=== PATIENT | female | born 1985 | race Caucasian/White ===

== ENCOUNTER 2017-11-12 08:15 | Day surgery (SDC) | payer OTHER ==
--- NOTE | 2017-11-12 07:21 | PDGENHP ---
History & Physical Chief Complaint: Missed AB at 10 wks EGA History of Present Illness: 32 yo at 10wks EGA here for D&C for missed AB diagnosed by me yesterday in clinic. Was in for her New OB appointment and couldn't find FHR with doppler, confirmed IUFD by formal US. Not really having any cramping or bleeding. H/o prior term PLTCS with her son Woodrow, no other h/o miscarriage. Otherwise uncomplicated thus far in first trimester. No recent chagnes to histories or health. Pertinent Past, Social, Family History: Non-pertinent. Relevant Physical Exam: No distress, belly is soft, non-tender, non-acute. Assessment & Plan Assessment: Preop: D&C under US-guidance, missed AB at 10 wks. - Routine preop orders. - Will do under US-guidance, [facility] radiology here to do that intra-op. - Abx will be 100mg PO Doxycycline PREOP and 200mg PO postop before discharge. - No need for repeat HCG's postop, will f/u by phone in 2-3 days. - CBC and Type & Screen up to date, collected yesterday. JEREMIAS
[2017-11-12] MEDS ORDERED: DOXYCYCLINE HYCLATE 100 MG CAP/TAB PO ONE ×2 (09:21→12:07)
[2017-11-12] MEDS ORDERED: LR 1,000 ML IV SCH (09:21)
[2017-11-12] MEDS ORDERED: MIDAZOLAM 2 MG/2 ML VIAL IVP ONE (09:34)
--- NOTE | 2017-11-12 09:36 | PDANEPAE ---
ANE History of Present Illness d&c ANE Past Medical History - Cardiovascular History Hx Hypertension: No Hx Arrhythmias: No Hx Chest Pain: No Hx Coronary Artery / Peripheral Vascular Disease: No Hx CHF / Valvular Disease: No Hx Palpitations: No - Pulmonary History Hx COPD: No Hx Asthma/Reactive Airway Disease: No Hx Recent Upper Respiratory Infection: No Hx Oxygen in Use at Home: No Hx Sleep Apnea: No - Neurologic History Hx Cerebrovascular Accident: No Hx Seizures: No Hx Dementia: No - Endocrine History Hx Diabetes: No Hypothyroid: No Hyperthyroid: No Obesity: no - Renal History Hx Renal Disorders: No - Liver History Hx Hepatic Disorders: No - Neurological & Psychiatric Hx Hx Neurological and Psychiatric Disorders: No ANE Review of Systems Review of Systems: - Exercise capacity Exercise capacity: >=4 METS ANE Patient History - Allergies Allergies/Adverse Reactions: No Known Allergies Allergy (Unverified 11/12/17 07:23) - Home Medications Home medications: home medication list seen and reviewed - NPO status NPO Since - Liquids (Date): 11/12/17 NPO Since - Liquids (Time): 06:30 NPO Since - Solids (Date): 11/12/17 NPO Since - Solids (Time): 00:00 - Anes Hx Anes Hx: no prior problems ANE Physical Exam - Airway Mallampati Score: Class 2 Mouth exam: normal dental/mouth exam - Pulmonary Pulmonary: no respiratory distress - Cardiovascular Cardiovascular: regular rate and rhythym - ASA Status ASA Status: II ANE Anesthesia Plan Anesthesia Plan: GA w LMA
[2017-11-12] MEDS ORDERED: DEXAMETHASONE 4 MG/ML VIAL ONE (09:37)
[2017-11-12] MEDS ORDERED: LIDOCAINE 2% 2 ML INJ ONE ×2 (09:37)
[2017-11-12] MEDS ORDERED: KETOROLAC 30 MG/1 ML SDV ONE (09:37)
[2017-11-12] MEDS ORDERED: ONDANSETRON 4 MG/2 ML VIAL ONE (09:37)
[2017-11-12] MEDS ORDERED: fentaNYL 100 MCG/2 ML INJ ONE (09:37)
[2017-11-12] MEDS ORDERED: PROPOFOL 200 MG/20 ML VIAL ONE (09:38)
--- NOTE | 2017-11-12 09:50 | POSTOPPROG ---
Post Op Note Date of Operation: 11/14/17 Surgeon: Danie Hernández Nutritional Services Host: None Anesthesiologist: Reid Montelongo Anesthesia: LMA Pre-op Diagnosis: Missed AB, 10 wks Post-op Diagnosis: Same Procedure: Suction D&C, US-guidance Findings: ~10wk EGA fetus, no FCA, no other obvious abnormalities Inf/Abcess present in the surg proc area at time of surgery?: No EBL: 50cc Complications: None Specimen(s): Products of conception
[2017-11-12] MEDS ORDERED: LIDO/EPI 2% **for epidural** 20 ML SDV ONE (10:23)
[2017-11-12] MEDS ORDERED: LIDOCAINE/EPINEPHRINE 0.5% 50 ML MDV IF ONE (10:30)
[2017-11-12] MEDS ORDERED: ALBUTEROL 3 ML DEYVIAL IH PRN (10:38)
[2017-11-12] MEDS ORDERED: ONDANSETRON 4 MG/2 ML VIAL IVP PRN (10:38)
[2017-11-12] MEDS ORDERED: HYDROCODONE/APAP 5/325 TAB PO PRN (10:38)
[2017-11-12] MEDS ORDERED: fentaNYL 100 MCG/2 ML INJ IVP PRN (10:38)
[2017-11-12] MEDS ORDERED: LR 500 ML IV PRN (10:38)
[2017-11-12] MEDS ORDERED: NALOXONE HCL 0.4 MG/ML INJ IVP PRN (10:38)
[2017-11-12] MEDS ORDERED: MEPERIDINE 25 MG/0.5 ML AMP IVP PRN (10:38)
--- NOTE | 2017-11-12 10:51 | POSTANESTH ---
Post Anesthetic Evaluation Cardiovascular Status: Normal, Stable Respiratory Status: Normal, Stable Level of Consciousness/Mental Status: Can Participate in Eval Pain Control: Adequate, Prn Tx Ordered Nausea/Vomiting Control: Adequate, Prn Tx Ordered Complications Possibly Related to Anesthesia: None Noted
[2017-11-12 12:16] VITALS: BP 107/82
== END 2017-11-12 12:40 | disposition home or self-care (01) ==
LOC: FSGY 08:15 → FOBOP 12:40
PROVIDERS: ATTEND Obstetrics & Gynecology
PROC: 10D17ZZ Extraction of Products of Conception, Retained, Via Natural or Artificial Opening (ICD-10-PCS; principal; 2017-11-12)
PROC: BU46ZZZ Ultrasonography of Uterus (ICD-10-PCS; 2017-11-12)
DX: O02.1 Missed abortion (principal); Z88.0 Allergy status to penicillin
CPT/HCPCS: J1100; J1885; J2250; J2405; J2704; J3010; J7613

== ENCOUNTER → 2018-05-17 | Outpatient (CLI) | payer OTHER | LOC: FIMAGING 14:58 | PROVIDERS: ATTEND Obstetrics & Gynecology | DX: O02.1 Missed abortion (principal) ==

== ENCOUNTER 2018-05-18 06:14 | Day surgery (SDC) | payer OTHER ==
--- NOTE | 2018-05-17 17:21 | GHP ---
[f rep st] HISTORY AND PHYSICAL DATE OF ADMISSION: 05/18/2018 ADMITTING DIAGNOSES: 1. Missed at 8 weeks 2 days. 2. Failed medical treatment with retained products of conception. HISTORY OF PRESENT ILLNESS: The patient is a 33-year-old, G3, P1-0-1-1, with last menstrual period 03/11/2018 with an estimated due date 12/15/2018 @ 8 weeks 3 days by LMP with a missed AB. Patient was seen for new Ob visit and had an ultrasound done showing IUP @ 8 weeks 2 days and no cardiac activity was seen. Condolences were given and a long discussion with treatment options were given. The patient opted for medical management with misoprostol and took misoprostol on May 12. She had cramping and heavy bleeding with clots 4 hours later. The cramping did resolve the next day, but she had 2 more days of moderate bleeding. She presents to the office today for a f/u ultrasound. She just notes spotting and no further cramping. Patient denies any fevers, chills , nausea, or vomiting. Pelvic ultrasound revealed a uterus measuring 8 x 4 x 5 cm with a thickened heterogeneous lining measuring 1.6 cm with internal flow consistent with retained products. Discussed findings with the patient and recommend we proceed with suction D and C that was scheduled in the morning on May 18. Patient agrees with the plan at this time. PAST OB HISTORY: In June of 2014, she delivered a viable male infant at 40 weeks 5 days, weighing 8 pounds 7 ounces, via secondary to arrest of descent. Patient pushed for 3+ hours. In November 2017, she had a suction D and C secondary to a SAB with genetic testing revealing Trisomy 18. 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 Cycles are regular every 27 days for 3 days, except after D and C where it took her a few months to get regular menses again. Last menstrual period 03/11/2018. Patient has a history of abnormal Pap smears and cervical dysplasia treated with cold knife cone in 2006. 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 CURRENT MEDICATIONS: She stopped taking vitamins, currently none. ALLERGIES: Penicillin which causes a mild rash. PAST MEDICAL HISTORY: Remarkable for migraines with aura and severe cervical dysplasia. PAST SURGICAL HISTORY: Cervical cone biopsy in 2006; in June 2014; Suction D and C in November 2017. FAMILY HISTORY: Maternal aunt,and cousins, thyroid dysfunction; Maternal uncle , schizophrenia; Mom, maternal grandmother, and paternal grandmother, hypertension; Maternal aunt has a child with Down syndrome. SOCIAL HISTORY: Patient is and lives with her , Macho and their 4 year old sone. 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 Patient denies any current alcohol, tobacco, or illicit drug use. REVIEW OF SYSTEMS: A 10 point review of systems is negative. Pertinent positives noted in HPI. LABS: O positive. STUDIES: Ultrasound as above. PHYSICAL EXAMINATION: VITAL SIGNS: On admission, vital signs are stable. Patient is afebrile. GENERAL: Patient is a well-nourished, well-developed female. Alert and oriented x3. No apparent distress. SKIN: Warm, dry without rash. NEURO: Grossly intact. CARDIOVASCULAR: Regular rate and rhythm. LUNGS : Clear to auscultation bilaterally. ABDOMEN: Soft, nontender, and nondistended. PELVIC: Anteverted uterus to about 8-9 week size, nontender and no adnexal masses. EXTREMITIES: Normal to inspection without calf tenderness or edema. ASSESSMENT/PLAN: The patient is a 33-year-old 3, para 1-0-1-1 with a missed at 8 weeks 2 days, failed medical management with retained products of conception. 1. Admit to Labor and Delivery for suction D and C. 2. Consents to be obtained at the bedside, but we reviewed risks, benefits, and alternatives of the procedure including but not limited to bleeding, infection, and risk of uterine perforation. Patient understands all risks and wants to proceed with surgery. 3. Will give antibiotics on-call to the operating room, doxycycline 100 mg orally and then again in recovery prior to discharge home. 4. Patient is O positive and no RhoGAM is needed. 5. Will perform the procedure under ultrasound guidance. 6. Sequential compression devices for deep venous thrombosis prophylaxis. 7. Patient desires Anora-genetic testing at this time. /[id number]/MODL MTDD
[2018-05-18] MEDS ORDERED: DOXYCYCLINE HYCLATE 100 MG CAP/TAB PO ONE ×3 (06:29→08:45)
[2018-05-18] MEDS ORDERED: LR 1,000 ML IV ONE (06:29)
[2018-05-18] MEDS ORDERED: MIDAZOLAM 2 MG/2 ML VIAL ONE ×2 (07:33→07:59)
[2018-05-18] MEDS ORDERED: PROPOFOL 200 MG/20 ML VIAL ONE ×2 (07:34)
[2018-05-18] MEDS ORDERED: fentaNYL 100 MCG/2 ML INJ ONE (07:34)
--- NOTE | 2018-05-18 07:36 | PDHPUP ---
History & Physical Update H&P update statement: This history and physical update is based on an assessment of the patient which was completed after admission or registration (within 24 hours), but prior to the surgery/procedure. H&P update: H&P reviewed & patient examined, no change in patient's condition since H&P completed
[2018-05-18] MEDS ORDERED: DEXAMETHASONE 4 MG/ML VIAL ONE (07:37)
[2018-05-18] MEDS ORDERED: KETOROLAC 30 MG/1 ML SDV ONE (07:37)
[2018-05-18] MEDS ORDERED: LIDOCAINE 2% 2 ML INJ ONE (07:37)
[2018-05-18] MEDS ORDERED: METOCLOPRAMIDE 10 MG/2 ML VIAL ONE (07:37)
[2018-05-18] MEDS ORDERED: ONDANSETRON 4 MG/2 ML VIAL ONE (07:37)
--- NOTE | 2018-05-18 07:40 | PDANEPAE ---
ANE Past Medical History - Cardiovascular History Hx Hypertension: No Hx Arrhythmias: No Hx Chest Pain: No Hx Coronary Artery / Peripheral Vascular Disease: No Hx CHF / Valvular Disease: No Hx Palpitations: No - Pulmonary History Hx COPD: No Hx Asthma/Reactive Airway Disease: No Hx Recent Upper Respiratory Infection: No Hx Oxygen in Use at Home: No Hx Sleep Apnea: No - Neurologic History Hx Cerebrovascular Accident: No Hx Seizures: No Hx Dementia: No - Endocrine History Hx Diabetes: No - Renal History Hx Renal Disorders: No - Liver History Hx Hepatic Disorders: No - Neurological & Psychiatric Hx Hx Neurological and Psychiatric Disorders: No ANE Review of Systems Review of Systems: ANE Patient History - Allergies Allergies/Adverse Reactions: Penicillins Allergy (Mild, Verified 11/12/17 09:38) Rash - NPO status NPO Since - Liquids (Date): 05/18/18 NPO Since - Liquids (Time): 05:40 NPO Since - Solids (Date): 05/17/18 NPO Since - Solids (Time): 19:00 - Smoking Hx Smoking Status: Never smoked ANE Labs/Vital Signs - Vital Signs Heart Rate: 87 Respiratory Rate: 12 O2 Sat (%): 96 Height: 157.48 cm Weight: 61.235 kg ANE Physical Exam - Airway Neck exam: FROM, spinal fusion Mouth exam: normal dental/mouth exam - Pulmonary Pulmonary: no respiratory distress, no rales or rhonchi, clear to auscultation - Cardiovascular Cardiovascular: regular rate and rhythym, no murmur, rub, or gallop - ASA Status ASA Status: I ANE Anesthesia Plan Anesthesia Plan: GA with mask
[2018-05-18] MEDS ORDERED: LR 500 ML IV PRN (07:53)
[2018-05-18] MEDS ORDERED: HYDROCODONE/APAP 5/325 TAB PO PRN (07:53)
[2018-05-18] MEDS ORDERED: ACETAMINOPHEN 500 MG TAB PO PRN (07:53)
[2018-05-18] MEDS ORDERED: DIAZEPAM 5 MG/ML 1 ML SYR IVP PRN (07:53)
[2018-05-18] MEDS ORDERED: DEXAMETHASONE 4 MG/ML VIAL IVP PRN (07:53)
[2018-05-18] MEDS ORDERED: METOCLOPRAMIDE 10 MG/2 ML VIAL IVP PRN (07:53)
[2018-05-18] MEDS ORDERED: ALBUTEROL 3 ML DEYVIAL IH PRN (07:53)
[2018-05-18] MEDS ORDERED: PROMETHAZINE HCL 25 MG/ML INJ IVP PRN (07:53)
[2018-05-18] MEDS ORDERED: ONDANSETRON 4 MG/2 ML VIAL IVP PRN (07:53)
[2018-05-18] MEDS ORDERED: fentaNYL 100 MCG/2 ML INJ IVP PRN (07:53)
[2018-05-18] MEDS ORDERED: NALOXONE HCL 0.4 MG/ML INJ IVP PRN (07:53)
[2018-05-18] MEDS ORDERED: PROPOFOL/EMULSION 500 MG/50 ML BOTTLE IV ONE (08:08)
--- NOTE | 2018-05-18 08:31 | POSTOPPROG ---
Post Op Note Date of Operation: 05/18/18 Surgeon: Kristine Plata Assembler 1St Shift: None Anesthesiologist: Viola Puentes Anesthesia: Other (Specify) (GA with mask) Pre-op Diagnosis: MAB at 8 2/7 wks, failed medical treatment with retained POCs Post-op Diagnosis: MAB at 8 2/7 wks, failed medical treatment with retained POCs Indication: 33 y/o with MAB at 8 2/7 wks, s/p Miso with thickened lining on US Procedure: Suction D&C under u/s guidance Findings: Ut sounded to 9 cm; cx about 1 cm; min blood; mod amount POCs; Pt is O + Inf/Abcess present in the surg proc area at time of surgery?: No Depth: Organ Space EBL: 50-100 (50cc) Total fluids administered: 600cc UO-bladder emptied in OR 300cc clear urine Complications: None Bowel Protocol: N/A Clean Closure Performed: N/A Specimen(s): POCs; Pt desires Anora testing
--- NOTE | 2018-05-18 09:17 | GOP ---
[f rep st] OPERATIVE REPORT DATE OF OPERATION: 05/18/2018 SURGEON: Kristine Plata DO MANAGER WINTER: None. ANESTHESIA: General endotracheal with mask. ANESTHESIOLOGIST: Trudy Puentes MD. PREOPERATIVE DIAGNOSIS: Missed at 8 weeks 2 days, failed medical treatment with retained products of conception. POSTOPERATIVE DIAGNOSIS: Missed at 8 weeks 2 days, failed medical treatment with retained products of conception. PROCEDURE PERFORMED: Suction dilation and curettage under ultrasound guidance. FINDINGS: Uterus sounded to 9 cm. There was minimal bleeding noted in the vaginal vault. Cervix was already dilated to about 1 cm. A moderate amount of POC was noted. Minimal bleeding at the end of the procedure. A thin endometrial stripe was visualized on ultrasound at the end of the procedure. Patient is O positive, no RhoGAM is needed. Patient desires Anora, genetic testing at this time. SPECIMENS: Products of conception. ESTIMATED BLOOD LOSS: 50 cc. INDICATIONS: Patient is a 33-year-old, G3, P1-0-1-1 with missed at 8 weeks 2 days, who opted for medical management and took misoprostol about a week ago and had a followup ultrasound yesterday that showed a thickened, heterogeneous lining at 1.6 cm consistent with retained products of conception. Discussed proceeding with a suction D and C that was scheduled for today. Also discussed risks, benefits, and alternatives of the procedure, including, but not limited to, bleeding, infection, damage to surrounding organs, and risk of uterine perforation. Patient understands all risks of the procedure and wants to proceed at this time. The patient was properly consented. DESCRIPTION OF PROCEDURE: Patient was taken to the operating room where anesthesia was administered without difficulty. The patient was placed in dorsal lithotomy position, prepped and draped in normal sterile fashion. Once the anesthetic was found to be adequate, a WHO time-out was performed. Then, an open ended speculum was placed in the vagina. The anterior lip of the cervix was grasped with an Allis clamp. The cervix was already dilated to 1 cm and did not need to be dilated any further. The uterus was then gently sounded to 9 cm. A curved 8 mm suction curette was used and connected to the suction, and placed gently in the cervix and up into the uterus. A suction curettage were performed under ultrasound guidance and three passes were made. We then turned our attention to a sharp curettage, which was performed in all 4 quadrants of the uterus until a gritty texture was noted, obtaining only a small amount of tissue. Then followed this with a fourth pass using the suction curettage to remove any remaining products of conception. Ultrasound revealed a thin endometrial stripe at this time. All instruments were then removed from the vagina and hemostasis was noted. The patient tolerated the procedure well. Minimal bleeding was noted. No complications. All sponge, lap and instrument counts were correct x2. The patient was then taken out of dorsal lithotomy position, awakened, and taken to the recovery room in stable condition. Patient received oral doxycycline prior to OR and again in PACU. IV FLUID: 600 cc LR. URINE OUTPUT: Bladder was emptied with a red rubber in OR with 300 cc of clear urine. /[id number]/MODL MTDD
[2018-05-18 09:55] VITALS: BP 126/87
== END 2018-05-18 10:30 | disposition home or self-care (01) ==
LOC: FOBOP 06:14
PROVIDERS: ATTEND Hospitalist
PROC: 10D17ZZ Extraction of Products of Conception, Retained, Via Natural or Artificial Opening (ICD-10-PCS; principal; 2018-05-18)
DX: O02.89 Other abnormal products of conception (principal)
CPT/HCPCS: J1100; J1885; J2250; J2405; J2704; J2765; J3010; J7613